=== PATIENT | male | born 1965 | race Caucasian/White ===

== ENCOUNTER 2018-02-05 22:30 | Inpatient (IN) | payer MEDICARE, MEDICAID ==
[~2018-02-05] VITALS: Ht 182.9 cm; Wt 97.7 kg
--- NOTE | ~2018-02-05 | EC ---
PATIENT:LINDA WAHL DATE OF SERVICE: 02/06/18 SEX: M MEDICAL RECORD: [id number] DATE OF : 67 LOCATION:[facility] AGE OF PATIENT: 52 ADMISSION DATE: 02/10/18 REFERRING PHYSICIAN: INTERPRETING PHYSICIAN: IFEANYI WATTS MD ECHOCARDIOGRAM REPORT ECHO CHARGES 4 ECHO COMPLETE Date: 02/08 CLINICAL DIAGNOSIS: PRE SURGERY EXAM ECHOCARDIOGRAPHIC MEASUREMENTS (adult normal given) AC root (d.<3.7cm) 2.5 cm LV Septum d (<1.2 cm> 0.9 cm Valve Excursion 2.0 cm LV Septum (systole) 1.3 cm Left Atria (s.<4.0cm> 3.8 cm LVPW d(<1.2cm) 1.0 cm RV (d.<2.3cm) 3.1 cm LVPW (sytole) 1.3 cm LV diastole(<5.6CM) 4.4 cm MV E-F(>70mm/sec) cm LV systole 3.3 cm LVOT Diameter 1.9 cm MV exc.(>10mm) cm Est.ejection fraction (50-75%) % DOPPLER: LVIT cm/sec A 60 cm/sec E 72 cm/sec LA cm/sec RVSP 19.7 mmHg LVOT 130 cm/sec AOP1/2T m/s Asc. 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 FINDINGS: 1. Left ventricle: Normal size, shape, structure, and function. Ejection fraction is 60%. 2. The left atrium is normal. 3. The mitral valve is normal. 4. The aortic valve is normal. ECHOCARDIOGRAM REPORT [id number] LINDA WAHL 5. The tricuspid valve has trace tricuspid regurgitation. RVSP is normal. 6. The right ventricle is normal. 7. The right atrium is normal to mildly dilated. 8. Pulmonic valve shows trace pulmonic insufficiency. There is no pericardial effusion. CONCLUSIONS: The patient has a normal echocardiogram for the patient's stated age with no obvious abnormalities demonstrated. TRANSINT:[id number] Voice Confirmation ID: [id number] DOCUMENT ID: [id number] IFEANYI WATTS MD at 0749 CC: [id number] DICTATION DATE: 02/09/182239 NURSE UNIT MANAGER: 02/10/18 0538 ADM IN [place] [id number] [place] [address]
--- NOTE | ~2018-02-05 | OP ---
PATIENT NAME: LINDA WAHL MEDICAL RECORD: [id number] :67 LOCATION:[facility] ADMISSION DATE:02/10/18 SURGEON: CINDY POWERS MD DATE OF OPERATION: 02/10/2018 PREOPERATIVE DIAGNOSES: 1. Acute cholecystitis. 2. History of hepatitis C. POSTOPERATIVE DIAGNOSES: 1. Acute cholecystitis. 2. History of hepatitis C. 3. Hepatomegaly. 4. Extensive intraabdominal adhesions. PROCEDURES: 1. Laparoscopic cholecystectomy. 2. Intraoperative cholangiography without immediate surgeon interpretation. 3. A 14-gauge core needle liver biopsy. SURGEON: Cindy Powers MD PARKS AND RECREATION MANAGER: None. BLOOD LOSS: Less than 50 cc. ANESTHESIA: General. COMPLICATIONS: None. The risks, possible complications, and alternatives to the procedure were explained to the patient. He elects to proceed. OPERATIVE COURSE: The patient was conveyed to the operating room electively on 02/10/2018. General anesthesia was induced by the anesthesia staff. The abdomen was sterilely prepped and draped. A small skin aren was accomplished in the left upper quadrant. A Veress needle was inserted through the skin aren into the peritoneal cavity. CO2 insufflation was begun. Once a sufficient pneumoperitoneum had been achieved, a 5-mm trocar was inserted through an incision in the right upper quadrant. Under direct internal vision utilizing the television camera, another 5-mm trocar was inserted this time far laterally in the right upper quadrant. During insertion of the Veress needle and the 2 trocars, there was no apparent injury to the bowels, any intraperitoneal or retroperitoneal structures. Extensive intraabdominal adhesions were noted. This was going to be necessary to take down some of these adhesions in order to have enough working space to perform the procedure laparoscopically. I began to takedown the adhesions sharply. At no time was there any apparent injury to the bowels. A 5 mm trocar was inserted through an incision in the left upper quadrant. A 12-mm trocar was inserted through an incision in the right periumbilical area. The indication for the liver biopsy was hepatomegaly and a history of hepatitis C. Under laparoscopic guidance, I percutaneously accessed the right upper quadrant utilizing a 14-gauge core needle liver biopsy device. Cores were OPERATIVE REPORT [id number] LINDA WAHL obtained over the convexity of the liver. The biopsy sites were made hemostatic with the electrocautery. I then advanced a cholangiogram trocar. I punctured the fundus of the gallbladder. I aspirated bile. I then injected dye. Under real time fluoroscopy, cholangiographic images were obtained. They revealed no evidence of a common bile duct stone. I aspirated bile and then removed the cholangiogram trocar. The gallbladder was grasped and retracted cephalad. There were some adhesions to the inferior aspect of the gallbladder as well as the infundibulum. These were taken down bluntly. Blunt dissection was begun in the triangle of Calot. Two cystic arteries and one cystic duct were identified. These were clipped multiply and divided between clips. The gallbladder was placed within a bag retrieval device and was withdrawn through the periumbilical fascial defect. All the trocars were replaced. CO2 insufflation was turned down to a pressure of 8. There was no bleeding. I irrigated and aspirated the right upper quadrant. Fibrillar was added to the gallbladder fossa for additional hemostasis. The 12-mm trocar fascial site was closed with a Maxi-Jimenez suture closure device and a 0 Vicryl suture. All the trocars were removed and the abdomen desufflated. The patient was then extubated and conveyed to the post-anesthesia care unit where he was in stable condition. From my standpoint, he can be dismissed home and I will see him in the office in 2-3 weeks. No family members were present at this time. TRANSINT:[id number] Voice Confirmation ID: [id number] DOCUMENT ID: [id number] CINDY POWERS MD at 1004 CC: CINDY MONROY MD, LARY THEODORE MD and DIANA ROBLERO [id number] DICTATION DATE: 02/10/18 1319 DIRECTOR MOTION PICTURE: 02/10/18 1509 ADM IN [facility] [address] [place] [address]
[2018-02-05 23:00] VITALS: BP 126/73
[2018-02-06] VITALS (7 sets, daily range): BP systolic 110–134; BP diastolic 70–91; Ht 182.9 cm; Wt 97.7 kg
[2018-02-06 05:38] LABS: CKMB 0.4 U/L (0.0-3.6)
[2018-02-06 05:42] LABS: TROPONIN-I < 0.017 ng/mL (0.000-0.060)
[2018-02-06 09:11] LABS: BASOPHILS 0.3 % (0-2); EOSINOPHILS 1.7 % (0-7); HEMATOCRIT 40.6 % (42.0-54.0); HEMOGLOBIN 13.5 g/dL (13.5-17.5); IMMATURE GRANULOCYTES 0.5 % (0-5); LYMPHOCYTES 19.1 % (15-50); MCH 28.3 pg (26.0-34.0); MCHC 33.3 g/dL (31.0-37.0); MCV 85.1 fL (80.0-100.0); MEAN PLATELET VOLUME 10.4 fL (7.4-10.4); MONOCYTES 8.1 % (2-11); NEUTROPHILS 70.3 % (40-80); PLATELET COUNT 235 10x3/uL (130-400); RBC 4.77 10x6/uL (4.20-6.10); RDW 13.7 % (11.5-14.5); WBC 7.7 10x3/uL (4.8-10.8)
[2018-02-06 09:27] LABS: ALBUMIN 3.4 g/dL (3.4-5.0); ALKALINE PHOSPHATASE 98 U/L (46-116); ALT (SGPT) 47 U/L (10-68); BILIRUBIN - TOTAL 1.32 mg/dL (0.2-1.3); CALC OSMOLALITY 278 mosm/kg (275-300); CALCIUM 7.7 mg/dL (8.5-10.1); CARBON DIOXIDE 27.2 mmol/L (21.0-32.0); CHLORIDE - SERUM 105 mmol/L (98-107); CREATININE - SERUM 0.9 mg/dL (0.6-1.3); GLUCOSE 87 mg/dL (74-106); POTASSIUM - SERUM 4.2 mmol/L (3.5-5.1); PROTEIN - SERUM 6.6 g/dL (6.4-8.2); SODIUM 140 mmol/L (136-145); UREA NITROGEN 15 mg/dL (7-18); eGFR NON AFRICAN AMERICAN > 90 mL/min (90-120)
[2018-02-07 04:00] VITALS: BP 132/80
[2018-02-07 04:50] LABS: BASOPHILS 0.3 % (0-2); EOSINOPHILS 2.2 % (0-7); HEMATOCRIT 40.6 % (42.0-54.0); HEMOGLOBIN 13.8 g/dL (13.5-17.5); IMMATURE GRANULOCYTES 0.3 % (0-5); LYMPHOCYTES 17.6 % (15-50); MCH 28.3 pg (26.0-34.0); MCV 83.2 fL (80.0-100.0); NEUTROPHILS 69.6 % (40-80); PLATELET COUNT 213 10x3/uL (130-400); RBC 4.88 10x6/uL (4.20-6.10); RDW 13.3 % (11.5-14.5); WBC 6.7 10x3/uL (4.8-10.8)
[2018-02-07 05:22] LABS: ALBUMIN 3.2 g/dL (3.4-5.0); ALKALINE PHOSPHATASE 93 U/L (46-116); ALT (SGPT) 46 U/L (10-68); BILIRUBIN - TOTAL 1.36 mg/dL (0.2-1.3); CALC OSMOLALITY 273 mosm/kg (275-300); CARBON DIOXIDE 26.4 mmol/L (21.0-32.0); CHLORIDE - SERUM 104 mmol/L (98-107); CREATININE - SERUM 0.8 mg/dL (0.6-1.3); GLUCOSE 85 mg/dL (74-106); POTASSIUM - SERUM 3.7 mmol/L (3.5-5.1); PROTEIN - SERUM 6.5 g/dL (6.4-8.2); SODIUM 138 mmol/L (136-145); eGFR NON AFRICAN AMERICAN > 90 mL/min (90-120)
[2018-02-07 05:27] LABS: UREA NITROGEN 11 mg/dL (7-18)
[2018-02-07 08:28] VITALS: BP 149/96
[2018-02-07 13:05] LABS: APPEARANCE CLEAR (CLEAR); BILIRUBIN NEGATIVE (NEGATIVE); COLOR YELLOW (YELLOW); GLUCOSE NEGATIVE (NEGATIVE); KETONE NEGATIVE (NEGATIVE); NITRITE NEGATIVE (NEGATIVE); PROTEIN NEGATIVE (NEGATIVE); SPECIFIC GRAVITY 1.015 (1.005-1.020); UROBILINOGEN NORMAL (NORMAL)
[2018-02-07 13:18] VITALS: BP 148/98
[2018-02-07 16:08] VITALS: BP 142/85
[2018-02-07 20:00] VITALS: BP 159/95
[2018-02-08] VITALS: BP 139/83
[2018-02-08 04:00] VITALS: BP 122/70
[2018-02-08 06:22] LABS: BASOPHILS 0.2 % (0-2); EOSINOPHILS 2.1 % (0-7); HEMATOCRIT 38.5 % (42.0-54.0); HEMOGLOBIN 13.3 g/dL (13.5-17.5); IMMATURE GRANULOCYTES 0.4 % (0-5); LYMPHOCYTES 18.1 % (15-50); MCH 28.5 pg (26.0-34.0); MCHC 34.5 g/dL (31.0-37.0); MCV 82.4 fL (80.0-100.0); MEAN PLATELET VOLUME 10.2 fL (7.4-10.4); MONOCYTES 10.1 % (2-11); NEUTROPHILS 69.1 % (40-80); PLATELET COUNT 209 10x3/uL (130-400); RBC 4.67 10x6/uL (4.20-6.10); RDW 13.4 % (11.5-14.5); WBC 5.3 10x3/uL (4.8-10.8)
[2018-02-08 06:51] LABS: ALBUMIN 3.1 g/dL (3.4-5.0); ALKALINE PHOSPHATASE 88 U/L (46-116); ALT (SGPT) 42 U/L (10-68); BILIRUBIN - TOTAL 1.37 mg/dL (0.2-1.3); CALC OSMOLALITY 275 mosm/kg (275-300); CARBON DIOXIDE 27.8 mmol/L (21.0-32.0); CHLORIDE - SERUM 105 mmol/L (98-107); CREATININE - SERUM 0.8 mg/dL (0.6-1.3); GLUCOSE 81 mg/dL (74-106); POTASSIUM - SERUM 3.9 mmol/L (3.5-5.1); PROTEIN - SERUM 6.1 g/dL (6.4-8.2); SODIUM 139 mmol/L (136-145); UREA NITROGEN 9 mg/dL (7-18); eGFR NON AFRICAN AMERICAN > 90 mL/min (90-120)
[2018-02-08 07:59] VITALS: BP 117/81
[2018-02-08 20:56] VITALS: BP 93/53
[2018-02-09 04:55] VITALS: BP 149/94
[2018-02-09 06:50] LABS: BASOPHILS 0.8 % (0-2); EOSINOPHILS 4.2 % (0-7); HEMATOCRIT 40.2 % (42.0-54.0); HEMOGLOBIN 13.8 g/dL (13.5-17.5); IMMATURE GRANULOCYTES 0.2 % (0-5); LYMPHOCYTES 21.3 % (15-50); MCH 28.5 pg (26.0-34.0); MCHC 34.3 g/dL (31.0-37.0); MCV 82.9 fL (80.0-100.0); MONOCYTES 10.8 % (2-11); NEUTROPHILS 62.7 % (40-80); PLATELET COUNT 222 10x3/uL (130-400); RBC 4.85 10x6/uL (4.20-6.10); RDW 13.5 % (11.5-14.5); WBC 4.7 10x3/uL (4.8-10.8)
[2018-02-09 07:10] LABS: ALBUMIN 3.3 g/dL (3.4-5.0); ALKALINE PHOSPHATASE 94 U/L (46-116); BILIRUBIN - DIRECT 0.27 mg/dL (0.00-0.30); BILIRUBIN - INDIRECT 1.23 mg/dL (0.00-1.00); CALC OSMOLALITY 271 mosm/kg (275-300); CALCIUM 8.2 mg/dL (8.5-10.1); CARBON DIOXIDE 27.5 mmol/L (21.0-32.0); CHLORIDE - SERUM 103 mmol/L (98-107); CREATININE - SERUM 0.8 mg/dL (0.6-1.3); GLUCOSE 94 mg/dL (74-106); POTASSIUM - SERUM 3.9 mmol/L (3.5-5.1); SODIUM 137 mmol/L (136-145); UREA NITROGEN 8 mg/dL (7-18); eGFR NON AFRICAN AMERICAN > 90 mL/min (90-120)
[2018-02-09 07:11] LABS: ALT (SGPT) 54 U/L (10-68)
[2018-02-09 07:15] LABS: INR 0.99 (0.85-1.17); PROTIME 12.7 SECONDS (11.6-15.0)
[2018-02-09 08:49] VITALS: BP 146/94
[2018-02-09 15:56] VITALS: BP 144/99
[2018-02-09 20:26] VITALS: BP 136/86
[2018-02-10] VITALS (10 sets, daily range): BP systolic 138–204; BP diastolic 77–116
[2018-02-10 06:01] LABS: BASOPHILS 0.6 % (0-2); EOSINOPHILS 4.3 % (0-7); HEMOGLOBIN 12.1 g/dL (13.5-17.5); IMMATURE GRANULOCYTES 0.4 % (0-5); LYMPHOCYTES 20.9 % (15-50); MCH 28.2 pg (26.0-34.0); MCHC 33.6 g/dL (31.0-37.0); MCV 83.9 fL (80.0-100.0); MEAN PLATELET VOLUME 10.3 fL (7.4-10.4); NEUTROPHILS 63.8 % (40-80); PLATELET COUNT 208 10x3/uL (130-400); RBC 4.29 10x6/uL (4.20-6.10); RDW 13.6 % (11.5-14.5); WBC 4.7 10x3/uL (4.8-10.8)
[2018-02-10 06:39] LABS: ALKALINE PHOSPHATASE 87 U/L (46-116); ALT (SGPT) 58 U/L (10-68); BILIRUBIN - TOTAL 1.12 mg/dL (0.2-1.3); CALC OSMOLALITY 276 mosm/kg (275-300); CALCIUM 7.6 mg/dL (8.5-10.1); CARBON DIOXIDE 29.3 mmol/L (21.0-32.0); CHLORIDE - SERUM 107 mmol/L (98-107); CREATININE - SERUM 0.8 mg/dL (0.6-1.3); GLUCOSE 74 mg/dL (74-106); POTASSIUM - SERUM 3.8 mmol/L (3.5-5.1); PROTEIN - SERUM 6.1 g/dL (6.4-8.2); SODIUM 141 mmol/L (136-145); eGFR NON AFRICAN AMERICAN > 90 mL/min (90-120)
[2018-02-10 06:40] LABS: UREA NITROGEN 5 mg/dL (7-18)
[2018-02-11 02:29] VITALS: BP 1145/88
[2018-02-11 06:29] LABS: BASOPHILS 0.3 % (0-2); EOSINOPHILS 0.8 % (0-7); HEMATOCRIT 32.5 % (42.0-54.0); HEMOGLOBIN 10.9 g/dL (13.5-17.5); IMMATURE GRANULOCYTES 0.2 % (0-5); LYMPHOCYTES 9.5 % (15-50); MCH 28.1 pg (26.0-34.0); MCHC 33.5 g/dL (31.0-37.0); MCV 83.8 fL (80.0-100.0); MEAN PLATELET VOLUME 10.4 fL (7.4-10.4); MONOCYTES 9.9 % (2-11); NEUTROPHILS 79.3 % (40-80); PLATELET COUNT 223 10x3/uL (130-400); RBC 3.88 10x6/uL (4.20-6.10); RDW 13.4 % (11.5-14.5)
[2018-02-11 06:30] LABS: WBC 6.2 10x3/uL (4.8-10.8)
[2018-02-11 06:52] LABS: ALBUMIN 2.8 g/dL (3.4-5.0); ALKALINE PHOSPHATASE 108 U/L (46-116); BILIRUBIN - TOTAL 2.05 mg/dL (0.2-1.3); CALCIUM 7.7 mg/dL (8.5-10.1); CHLORIDE - SERUM 105 mmol/L (98-107); CREATININE - SERUM 0.9 mg/dL (0.6-1.3); POTASSIUM - SERUM 3.5 mmol/L (3.5-5.1); SODIUM 137 mmol/L (136-145); UREA NITROGEN 5 mg/dL (7-18); eGFR NON AFRICAN AMERICAN > 90 mL/min (90-120)
[2018-02-11 06:57] LABS: ALT (SGPT) 88 U/L (10-68); CALC OSMOLALITY 272 mosm/kg (275-300); GLUCOSE 128 mg/dL (74-106)
[2018-02-11 08:32] VITALS: BP 157/93
[2018-02-11 11:54] VITALS: BP 110/57
[2018-02-11 20:00] VITALS: BP 171/62
[2018-02-12] VITALS: BP 156/99
[2018-02-12 04:00] VITALS: BP 170/106
[2018-02-12 05:52] LABS: BASOPHILS 0.3 % (0-2); EOSINOPHILS 1.4 % (0-7); HEMATOCRIT 29.8 % (42.0-54.0); IMMATURE GRANULOCYTES 0.5 % (0-5); LYMPHOCYTES 12.4 % (15-50); MCH 27.9 pg (26.0-34.0); MCHC 33.6 g/dL (31.0-37.0); MCV 83.2 fL (80.0-100.0); MEAN PLATELET VOLUME 10.3 fL (7.4-10.4); NEUTROPHILS 72.4 % (40-80); PLATELET COUNT 194 10x3/uL (130-400); RBC 3.58 10x6/uL (4.20-6.10); RDW 13.3 % (11.5-14.5); WBC 6.6 10x3/uL (4.8-10.8)
[2018-02-12 06:12] LABS: INR 1.1 (0.85-1.17); PROTIME 13.8 SECONDS (11.6-15.0)
[2018-02-12 06:16] LABS: ALKALINE PHOSPHATASE 95 U/L (46-116); ALT (SGPT) 74 U/L (10-68); BILIRUBIN - TOTAL 1.62 mg/dL (0.2-1.3); CALC OSMOLALITY 270 mosm/kg (275-300); CARBON DIOXIDE 29.5 mmol/L (21.0-32.0); CHLORIDE - SERUM 104 mmol/L (98-107); CREATININE - SERUM 0.8 mg/dL (0.6-1.3); GLUCOSE 94 mg/dL (74-106); POTASSIUM - SERUM 3.4 mmol/L (3.5-5.1); PROTEIN - SERUM 6.5 g/dL (6.4-8.2); SODIUM 137 mmol/L (136-145); UREA NITROGEN 4 mg/dL (7-18); eGFR NON AFRICAN AMERICAN > 90 mL/min (90-120)
[2018-02-12 09:53] VITALS: BP 186/105
[2018-02-12 13:08] VITALS: BP 191/116
[2018-02-12] MEDS ORDERED: ABILIFY15 MG PO (17:06)
[2018-02-12] MEDS ORDERED: PROPRANOLOL HCL60 MG PO (17:07)
[2018-02-12] MEDS ORDERED: HALDOL DECA100 MG/M1 IM (17:07)
[2018-02-12] MEDS ORDERED: NORVASC2.5 MG PO (17:08)
[2018-02-12] MEDS ORDERED: PROTONIX40 MG PO (17:10)
[2018-02-12] MEDS ORDERED: REMERON15 MG PO (17:10)
[2018-02-12] MEDS ORDERED: AMANTADINE100 M1 PO (17:12)
[2018-02-12] MEDS ORDERED: HYDROCODON-ACE1 EAC7 PO (17:13)
[2018-02-12 20:00] VITALS: BP 158/105
[2018-02-13 04:00] VITALS: BP 153/107
[2018-02-13 06:37] LABS: BASOPHILS 0.2 % (0-2); EOSINOPHILS 4.2 % (0-7); HEMATOCRIT 29.1 % (42.0-54.0); HEMOGLOBIN 9.7 g/dL (13.5-17.5); IMMATURE GRANULOCYTES 0.7 % (0-5); LYMPHOCYTES 14.7 % (15-50); MCH 27.6 pg (26.0-34.0); MCHC 33.3 g/dL (31.0-37.0); MCV 82.7 fL (80.0-100.0); MONOCYTES 12.7 % (2-11); NEUTROPHILS 67.5 % (40-80); PLATELET COUNT 212 10x3/uL (130-400); RBC 3.52 10x6/uL (4.20-6.10); RDW 13.3 % (11.5-14.5); WBC 6.1 10x3/uL (4.8-10.8)
[2018-02-13 06:40] LABS: INR 1.07 (0.85-1.17); PROTIME 13.5 SECONDS (11.6-15.0)
[2018-02-13 06:45] LABS: ALBUMIN 2.7 g/dL (3.4-5.0); ALKALINE PHOSPHATASE 86 U/L (46-116); BILIRUBIN - TOTAL 1.26 mg/dL (0.2-1.3); CALC OSMOLALITY 276 mosm/kg (275-300); CALCIUM 7.8 mg/dL (8.5-10.1); CARBON DIOXIDE 27.2 mmol/L (21.0-32.0); CHLORIDE - SERUM 106 mmol/L (98-107); CREATININE - SERUM 0.8 mg/dL (0.6-1.3); GLUCOSE 79 mg/dL (74-106); POTASSIUM - SERUM 3.2 mmol/L (3.5-5.1); SODIUM 141 mmol/L (136-145); UREA NITROGEN 3 mg/dL (7-18); eGFR NON AFRICAN AMERICAN > 90 mL/min (90-120)
[2018-02-13 06:50] LABS: ALT (SGPT) 50 U/L (10-68)
[2018-02-13 08:17] VITALS: BP 171/106
[2018-02-13 20:00] VITALS: BP 132/102
[2018-02-14] VITALS: BP 142/109
[2018-02-14 04:00] VITALS: BP 173/107
[2018-02-14 05:48] LABS: INR 1.02 (0.85-1.17)
[2018-02-14 06:01] LABS: ALBUMIN 2.7 g/dL (3.4-5.0); ALKALINE PHOSPHATASE 89 U/L (46-116); ALT (SGPT) 40 U/L (10-68); BILIRUBIN - TOTAL 1.49 mg/dL (0.2-1.3); CALC OSMOLALITY 274 mosm/kg (275-300); CALCIUM 7.9 mg/dL (8.5-10.1); CARBON DIOXIDE 26.6 mmol/L (21.0-32.0); CHLORIDE - SERUM 105 mmol/L (98-107); CREATININE - SERUM 0.7 mg/dL (0.6-1.3); GLUCOSE 87 mg/dL (74-106); POTASSIUM - SERUM 3.1 mmol/L (3.5-5.1); SODIUM 139 mmol/L (136-145); eGFR NON AFRICAN AMERICAN > 90 mL/min (90-120)
[2018-02-14 06:04] LABS: UREA NITROGEN 7 mg/dL (7-18)
[2018-02-14 06:41] LABS: BASOPHILS 0.5 % (0-2); EOSINOPHILS 6.5 % (0-7); HEMATOCRIT 29.6 % (42.0-54.0); IMMATURE GRANULOCYTES 1.1 % (0-5); LYMPHOCYTES 12.6 % (15-50); MCH 28.1 pg (26.0-34.0); MCHC 33.8 g/dL (31.0-37.0); MCV 83.1 fL (80.0-100.0); MONOCYTES 10.7 % (2-11); NEUTROPHILS 68.6 % (40-80); PLATELET COUNT 249 10x3/uL (130-400); RBC 3.56 10x6/uL (4.20-6.10); RDW 13.2 % (11.5-14.5); WBC 6.6 10x3/uL (4.8-10.8)
[2018-02-14 08:37] VITALS: BP 108/62
[2018-02-14] MEDS ORDERED: LEVAQUIN750 MG PO (11:43)
== END 2018-02-14 14:14 | disposition home or self-care (01) | DRG 418 ==
LOC: D.ER 22:30 → OBSVTIME 02-06 06:02 → D.MS 02-06 06:02 → D.EDHOLD 02-06 06:02 → D.MS 02-06 06:32
PROVIDERS: Family Medicine; Internal Medicine Nephrology; Surgery
PROC: BF121ZZ Fluoroscopy of Gallbladder using Low Osmolar Contrast (ICD-10-PCS; 2018-02-10)
PROC: 0FB03ZX Excision of Liver, Percutaneous Approach, Diagnostic (ICD-10-PCS; 2018-02-10)
PROC: 0FT44ZZ Resection of Gallbladder, Percutaneous Endoscopic Approach (ICD-10-PCS; principal; 2018-02-10 14:00)
PROC: 0DNW4ZZ Release Peritoneum, Percutaneous Endoscopic Approach (ICD-10-PCS; 2018-02-10 14:00)
DX: K81.0 Acute cholecystitis (principal); F17.203 Nicotine dependence unspecified, with withdrawal; D62 Acute posthemorrhagic anemia; K83.0 Cholangitis; R16.0 Hepatomegaly, not elsewhere classified; Z86.19 Personal history of other infectious and parasitic diseases; K66.0 Peritoneal adhesions (postprocedural) (postinfection); I10 Essential (primary) hypertension; F20.9 Schizophrenia, unspecified; I25.10 Atherosclerotic heart disease of native coronary artery without angina pectoris; R74.0 Nonspecific elevation of levels of transaminase and lactic acid dehydrogenase [LDH]; I45.6 Pre-excitation syndrome